=== PATIENT | female | born 1930 | race Caucasian/White ===

== ENCOUNTER 2017-12-26 20:33 | Inpatient (IN) | payer OTHER ==
[~2017-12-26] VITALS: Ht 167.6 cm; Wt 54.0 kg
--- NOTE | ~2017-12-26 | EKG ---
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
--- NOTE | ~2017-12-26 | EKG ---
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 : 1930 Requested By: Dinesh Louis Order Number: [id number] MD: Jerad Lawler Measurements Intervals [place] Rate: 83 P: RI: QRS: 15 QRSD: 92 T: QT: 391 QTc: 460 Interpretive Statements Atrial fibrillation Low voltage, precordial leads Borderline repolarization abnormality Compared to ECG 12/29/2011 11:56:45 Low QRS voltage now present Sinus rhythm no longer present Atrial premature complex(es) no longer present First degree AV block no longer present Electronically Signed On 12-27-2017 13:59:11 CDT by Jerad Lawler [email or web address] <ELECTRONICALLY SIGNED> By: Jerad Lawler MD 12/27/17 1359 Jerad Lawler MD /EPI
--- NOTE | ~2017-12-26 | H ---
[facility] [place] [address] HISTORY AND PHYSICAL Name: SHERICE CHUNG Frances Room #: 353-P ADM IN .R.#: [id number] Admission: 12/26/17 Attend Phys: Dean Gaston MD Discharge: Date of : [birth year] Report #: [id number] THIS REPORT FOR: //name// CC: Javier Gaston DATE OF SERVICE: 12/27/2017 CHIEF COMPLAINT: Weakness and confusion. HISTORY OF PRESENT ILLNESS: The patient is an 87-year-old female with Alzheimer disease, who was brought to the Emergency Room from home by her family due to weakness. She had some altered mental status with worsening confusion and general weakness for the last 3 days. There has been a recent increase of Seroquel about 5 days ago for behavior change or if she had becomes more agitated. Her daughter thought she was weaker in the legs and was unable to get around the house, so they cut it back down to 2 times a day her baseline. However, she continued to have some confusion and general weakness and was brought to the Emergency Room. PAST MEDICAL HISTORY: Alzheimer disease, hypertension. PAST SURGICAL HISTORY: Noncontributory. FAMILY HISTORY: Unknown. SOCIAL HISTORY: She lives with her . No chronic alcohol or tobacco use. ALLERGIES: None. MEDICATIONS: Atenolol, hydrochlorothiazide, Seroquel 25 mg 2-3 times a day, trazodone 100 mg at bedtime as needed, gabapentin 3 times a day. REVIEW OF SYSTEMS: She is pleasantly confused. Denies any pain or shortness of breath, but really cannot follow any review. OBJECTIVE: VITAL SIGNS: Temperature 36.8, pulse 55, respirations 18, blood pressure 106/58, O2 sat 95% on room air. GENERAL: She is awake and alert, in no distress. HEAD AND NECK: Unremarkable. LUNGS: Clear. HEART: Regular. ABDOMEN: Soft, normoactive bowel sounds. EXTREMITIES: No edema. NEUROLOGIC: Motor strength 3/5 throughout. She is not oriented, but she is [facility] [address] [place] [address] HISTORY AND PHYSICAL Name: SHERICE CHUNG Frances Room #: [address] [place] [address] [place] ..#: [id number] Admission: 12/26/17 Attend Phys: Dean Gaston MD Discharge: Date of : [birth year] Report #: [id number] alert, pleasant. LABORATORY DATA: Reviewed. Potassium was 2.6 on admission. Troponin negative. Urinalysis noted. CT and x-ray reviewed. EKG was interpreted as AFib; however, telemetry overnight seems more sinus rhythm with PACs. Initial EKG seemed to have a lot of background artifact. ASSESSMENT: 1. Severe hypokalemia. 2. Alzheimer disease. 3. Hypertension. 4. Debility. 5. Stage 2 sacral wound. PLAN: She is admitted to the hospital for medical replacement of electrolytes, stabilization of medications, wound care and social work assistance. It is not clear whether her can continue to manage her at home given the behavior issues and failed outpatient treatment with intervention of additional medications and now signs of skin issues. The ER notes in regards to fecal incontinence were reviewed and noted as well. <ELECTRONICALLY SIGNED> By: Dean Gaston MD 12/27/17 1252 [id number] 1015 Dean Gaston MD /nt
[~2017-12-26 20:33] MED LIST: ATENOLOL 50MG T50 MG; HYDROCHLOROTH12.5 MG; LOPID600 MG; MECLIZINE 25 MG25 M1 PO; PHENERGAN 25 MG25 M1 PO
[2017-12-26 20:52] LABS: ABSOLUTE NEUTROPHILS 8.2 thou/uL (1.4-8.2); BASOPHILS 0.4 % (0.0-2.0); HEMATOCRIT 34.8 % (37.0-47.0); HEMOGLOBIN 11.4 gm/dL (12.0-15.0); LYMPHOCYTES 8.1 % (24.0-44.0); MCH 28.3 pg (26.0-34.0); MCHC 32.8 g/dL (28.0-37.0); MCV 86.3 fL (80.0-100.0); MONOCYTES 7.8 % (1.0-8.0); PLATELET COUNT 196 thou/uL (150-400); POLYS 83.7 % (36.0-66.0); RBC 4.04 mil/uL (4.20-5.00); RDW 14.9 % (10.5-14.5); WBC 9.8 thou/uL (4.0-11.0)
[2017-12-26 20:58] LABS: ANION GAP 10 mmol/L (7-16); BUN 46 mg/dL (7-18); CALCIUM 9.7 mg/dL (8.5-10.1); CHLORIDE 98 mmol/L (98-107); CO2 30 mmol/L (21-32); CREATININE 1.9 mg/dL (0.6-1.0); GLUCOSE 227 mg/dL (74-106); SODIUM 138 mmol/L (136-145)
[2017-12-26 21:00] LABS: POTASSIUM 2.6 mmol/L (3.5-5.1)
[2017-12-26 21:08] LABS: TROPONIN-I < 0.04 ng/mL (<0.06)
[2017-12-26 21:09] VITALS: BP 116/54
[2017-12-26] MEDS ORDERED: ATENOLOL-CHLOR1 EACH PO (21:21)
[2017-12-26] MEDS ORDERED: SEROQUEL 25 MG25 M1 PO (21:22)
[2017-12-26] MEDS ORDERED: TRAZODONE HCL100 MG PO (21:22)
[2017-12-26 21:23] LABS: URINE BILIRUBIN NEGATIVE (Negative); URINE BLOOD 3+ (Negative); URINE CLARITY CLEAR; URINE COLOR YELLOW; URINE GLUCOSE-RANDOM* NEGATIVE (Negative); URINE KETONES NEGATIVE (Negative); URINE LEUKOCYTES-REFLEX NEGATIVE (Negative); URINE NITRITE-REFLEX NEGATIVE (Negative); URINE PROTEIN (DIPSTICK) NEGATIVE (Negative); URINE UROBILINOGEN 0.2 E.U./dl (0.2-1.0)
[2017-12-26] MEDS ORDERED: GABAPENTIN 100100 MG PO (21:23)
[2017-12-26 21:32] LABS: BACTERIA-REFLEX 1-9 Few /HPF (None Seen); CASTS None Seen /LPF (None Seen); CRYSTALS None Seen /LPF (None Seen); SQUAMOUS 0-3 Few /LPF (0-3); URINE RBC 3-10 Few /HPF (0-2); URINE WBC-REFLEX None Seen /HPF (0-5)
[2017-12-27] VITALS (8 sets, daily range): BP systolic 106–119; BP diastolic 54–72
[2017-12-27] MEDS ORDERED: EXELON1 EAC1 TOP (02:16)
[2017-12-27 17:03] LABS: CALCIUM 9.3 mg/dL (8.5-10.1); CREATININE 1.4 mg/dL (0.6-1.0)
[2017-12-27 17:04] LABS: POTASSIUM 2.7 mmol/L (3.5-5.1)
[2017-12-28 04:48] VITALS: BP 136/58
[2017-12-28 06:09] LABS: CALCIUM 9.5 mg/dL (8.5-10.1); CREATININE 1.1 mg/dL (0.6-1.0); MAGNESIUM 2.3 mg/dL (1.8-2.4)
[2017-12-28 07:44] VITALS: BP 153/69
[2017-12-28 11:38] VITALS: BP 123/65
[2017-12-28 15:15] VITALS: BP 119/57
[2017-12-28 19:46] VITALS: BP 154/84
[2017-12-29 03:36] VITALS: BP 150/90
[2017-12-29 07:22] VITALS: BP 116/62
[2017-12-29 07:57] LABS: CALCIUM 9.4 mg/dL (8.5-10.1); CREATININE 1.1 mg/dL (0.6-1.0); MAGNESIUM 1.6 mg/dL (1.8-2.4); POTASSIUM 3.7 mmol/L (3.5-5.1)
[2017-12-29 11:43] VITALS: BP 140/87
[2017-12-29 15:47] VITALS: BP 147/84
[2017-12-29 20:13] VITALS: BP 25/79
[2017-12-30 04:00] VITALS: BP 136/82
[2017-12-30 06:09] LABS: CALCIUM 9.3 mg/dL (8.5-10.1); MAGNESIUM 1.7 mg/dL (1.8-2.4); POTASSIUM 4.5 mmol/L (3.5-5.1)
[2017-12-30 08:17] VITALS: BP 136/76
[2017-12-30 12:16] VITALS: BP 128/65
[2017-12-30] MEDS ORDERED: MAGOX 400400 MG PO (13:05)
[2017-12-30] MEDS ORDERED: ACETAMINOPHEN325 M1 PO (13:05)
[2017-12-30] MEDS ORDERED: ATENOLOL 50MG T50 M1 PO (13:05)
[2017-12-30] MEDS ORDERED: TRAZODONE HCL50 MG PO (13:05)
[2017-12-30 16:39] VITALS: BP 122/63
== END 2017-12-30 18:26 | DRG 70 ==
LOC: ER 20:33 → 3W 23:15 → EROBS 23:15 → 3W 12-27 00:15 → 3N 12-27 00:26 → 3W 12-27 00:26
PROVIDERS: Internal Medicine; Internal Medicine Geriatric Medicine; Physician Assistant
DX: G93.41 Metabolic encephalopathy (principal); N17.0 Acute kidney failure with tubular necrosis; E87.6 Hypokalemia; I48.91 Unspecified atrial fibrillation; I10 Essential (primary) hypertension; G30.9 Alzheimer's disease, unspecified; F02.80 Dementia in other diseases classified elsewhere, unspecified severity, without behavioral disturbance, psychotic disturbance, mood disturbance, and anxiety; L89.152 Pressure ulcer of sacral region, stage 2
CPT/HCPCS: 10879